=== PATIENT | male | born 1965 | race American Indian/Alaskan Native ===

== ENCOUNTER 2020-08-29 23:47 | Emergency (ER) | payer OTHER ==
[2020-08-30 00:56] LABS: Basophils % (Auto) 0.5 % (0.0-1.8); Eosinophils # (Auto) 0.1 K/mm3 (0.0-0.4); Eosinophils % (Auto) 2.4 % (0.0-4.3); Hematocrit 43.9 % (35.5-45.6); Hemoglobin 14.4 gm/dl (11.8-15.2); Lymphocytes # (Auto) 2.2 K/mm3 (1.2-5.4); Lymphocytes % (Auto) 37.1 % (13.4-35.0); Mean Corpuscular HGB Conc 33 % (32-34); Mean Corpuscular Volume 87 fl (84-94); Monocytes # (Auto) 0.4 K/mm3 (0.0-0.8); Monocytes % (Auto) 6.5 % (0.0-7.3); Platelet Count 179 K/mm3 (140-440); Red Blood Count 5.03 M/mm3 (3.65-5.03); Red Cell Distribution Width 13.5 % (13.2-15.2)
[2020-08-30 01:08] LABS: BUN/Creatinine Ratio 13; Blood Urea Nitrogen 12 mg/dL (9-20); Calcium 9.4 mg/dL (8.4-10.2); Hemolysis Index 5
[2020-08-30 02:08] LABS: Bilirubin,Urine NEG (Negative); Blood,Urine NEG (Negative); Color,Urine Straw (Yellow); Protein,Urine <15 mg/dL mg/dL (Negative); Urobilinogen,Urine < 2.0 mg/dL (<2.0)
[2020-08-30 02:10] LABS: Amphetamine Screen,Urine PRESUMPTIVE NEGATIVE; Benzodiazepines Screen,Urine PRESUMPTIVE NEGATIVE; Cannabinoid Screen,Urine PRESUMPTIVE NEGATIVE; Cocaine Screen,Urine PRESUMPTIVE NEGATIVE; Methadone Screen,Urine PRESUMPTIVE NEGATIVE; Opiate Screen,Urine PRESUMPTIVE NEGATIVE
[2020-08-30] MEDS ORDERED: INSULIN REGULAR, HUMAN 100 UNITS/1 ML IV ONE (03:56)
[2020-08-30] MEDS ORDERED: SODIUM CHLORIDE 0.9% 1000 ML 1,000 ML IV ONE (03:56)
--- NOTE | 2020-08-30 04:04 | Emergency Department Report ---
ED Psych HPI - General Chief Complaint: Psych Stated Complaint: DEPRESSION/MH EVAL Time Seen by Provider: 08/30/20 03:55 Source: patient Mode of arrival: Ambulatory - History of Present Illness Initial Comments: Patient is a 54-year-old male that presents emergency room with complaints of suicidal and homicidal ideations. Patient states he is having depression. Patient states he is under a lot of stress. Patient states that his plan will be to take pills and not wake up. Patient states he is having a lot of arguments with his neighbors. Patient states he been having these thoughts for about 2 months and they are getting worse and more severe. Patient denies recent travel. Patient denies recent international travel. Patient denies exposure to the novel coronavirus. Patient denies sick contacts. Patient denies fever and chills. Patient denies cough. Patient denies diarrhea. Patient denies coming in contact with anybody with symptoms of the novel coronavirus. MD Complaint: suicidal ideation, feels depressed -: Sudden Associated Psychiatric Symptoms: depression, suicidal ideation History of same: No Quality: constant Improves With: none Worsens With: none Associated Symptoms: denies other symptoms If Self Harm: admits thoughts of, has plan - Related Data Home Medications Medication Instructions Recorded Confirmed Last Taken Glimepiride 4 mg PO BID 11/12/14 08/31/20 11/12/14 Montelukast Sodium [Singulair] 10 mg PO DAILY 11/12/14 08/31/20 11/12/14 Simvastatin (NF) [Zocor TAB] 40 mg PO QHS 11/12/14 08/31/20 11/12/14 metFORMIN [Glucophage] 500 mg PO BID 08/31/20 08/31/20 08/31/20 10:00 Previous Rx's Medication Instructions Recorded Last Taken Type Tamsulosin [Flomax] 0.4 mg PO QDAY #5 cap 11/12/14 Unknown Rx Melatonin [Melatonin 5MG TAB] 5 mg PO QHS PRN #30 tablet 09/05/20 Unknown Rx Sertraline [Zoloft] 50 mg PO QDAY #30 tablet 09/05/20 Unknown Rx traZODone [Desyrel] 75 mg PO QHS #30 tablet 09/05/20 Unknown Rx Allergies Allergy/AdvReac Type Severity Reaction Status Date / Time No Known Allergies Allergy Unverified 11/12/14 16:38 ED Review of Systems ROS: Stated complaint: DEPRESSION/MH EVAL Other details as noted in HPI Constitutional: denies: chills, fever Eyes: denies: eye pain, eye discharge, vision change ENT: denies: ear pain, throat pain Respiratory: denies: cough, shortness of breath, wheezing Cardiovascular: denies: chest pain, palpitations Endocrine: no symptoms reported Gastrointestinal: denies: abdominal pain, nausea, diarrhea Genitourinary: denies: urgency, dysuria Musculoskeletal: denies: back pain, joint swelling, arthralgia Skin: denies: rash, lesions Neurological: denies: headache, weakness, paresthesias Psychiatric: as per HPI, depression, homicidal thoughts, suicidal thoughts. denies: anxiety Hematological/Lymphatic: denies: easy bleeding, easy bruising ED Past Medical Hx - Past Medical History Previous Medical History?: Yes Hx Diabetes: Yes Hx Kidney Stones: Yes Hx Psychiatric Treatment: Yes (SI/HI) Hx Asthma: Yes Additional medical history: Back pain and kidney stones - Surgical History Past Surgical History?: Yes Additional Surgical History: lithotripsy for kidneystones - Social History Smoking Status: Never Smoker Substance Use Type: Alcohol - Medications Home Medications: Home Medications Medication Instructions Recorded Confirmed Last Taken Type Glimepiride 4 mg PO BID 11/12/14 08/31/20 11/12/14 History Montelukast Sodium [Singulair] 10 mg PO DAILY 11/12/14 08/31/20 11/12/14 History Simvastatin (NF) [Zocor TAB] 40 mg PO QHS 11/12/14 08/31/20 11/12/14 History Tamsulosin [Flomax] 0.4 mg PO QDAY #5 cap 11/12/14 08/31/20 Unknown Rx metFORMIN [Glucophage] 500 mg PO BID 08/31/20 08/31/20 08/31/20 10:00 History Melatonin [Melatonin 5MG TAB] 5 mg PO QHS PRN #30 tablet 09/05/20 Unknown Rx Sertraline [Zoloft] 50 mg PO QDAY #30 tablet 09/05/20 Unknown Rx traZODone [Desyrel] 75 mg PO QHS #30 tablet 09/05/20 Unknown Rx ED Physical Exam - General Limitations: No Limitations General appearance: alert, in no apparent distress - Head Head exam: Present: atraumatic, normocephalic - Eye Eye exam: Present: normal appearance - ENT ENT exam: Present: mucous membranes moist - Neck Neck exam: Present: normal inspection - Respiratory Respiratory exam: Present: normal lung sounds bilaterally. Absent: respiratory distress - Cardiovascular Cardiovascular Exam: Present: regular rate, normal rhythm. Absent: systolic murmur, diastolic murmur, rubs, gallop - GI/Abdominal GI/Abdominal exam: Present: soft, normal bowel sounds - Rectal Rectal exam: Present: deferred - Extremities Exam Extremities exam: Present: normal inspection - Back Exam Back exam: Present: normal inspection - Neurological Exam Neurological exam: Present: alert, oriented X3 - Psychiatric Psychiatric exam: Present: depressed, homicidal ideation, suicidal ideation - Skin Skin exam: Present: warm, dry, intact, normal color. Absent: rash ED Course Vital Signs 08/30/20 08/30/20 08/30/20 00:10 05:20 07:51 Temperature 98.2 F 97.8 F 98.0 F Pulse Rate 67 56 L 65 Respiratory 18 18 20 Rate Blood Pressure 140/79 Blood Pressure 143/74 132/76 [Left] O2 Sat by Pulse 96 99 96 Oximetry 08/30/20 08/31/20 08/31/20 20:28 03:52 08:00 Temperature 98.4 F 98.3 F Pulse Rate 56 L 71 Respiratory 18 18 18 Rate Blood Pressure Blood Pressure 119/76 116/74 [Left] O2 Sat by Pulse 99 98 98 Oximetry - Reevaluation(s) Reevaluation #1: Patient given fluids, insulin and we rechecked the patient's sugar and it was 156. Patient is medically cleared. Patient remained in the ER as an ER hold until the patient is cleared by psychiatry. Patient final disposition will come from our psychiatry and mental health team. 08/30/20 05:39 ED Medical Decision Making - Lab Data Result diagrams: 08/30/20 00:23 08/30/20 00:23 - Medical Decision Making Patient is a 54-year-old male who presents to the emergency room with complaints of suicidal ideation, homicidal ideations. Patient had labs done. Patient's labs were essentially unremarkable except for hyperglycemia. Patient was given fluids and IV insulin. Patient's blood sugar responded well. Patient's original blood sugar was 469 and the patient's follow-up blood sugar after treatment was 156. Patient was medically cleared. Patient will remain in the ER as an ER hold until patient is cleared psychiatrically by ER psychiatry and mental health team. Patient's disposition will come from our psychiatry team. - Differential Diagnosis Suicidal ideation, homicidal ideation, stress, depression, hyperglycemia Critical care attestation.: If time is entered above; I have spent that time in minutes in the direct care of this critically ill patient, excluding procedure time. ED Disposition Clinical Impression: Suicidal ideations, Homicidal thoughts Hyperglycemia due to type 2 diabetes mellitus Qualifiers: Diabetes mellitus supervisor intermediates insulin use: without jail use Qualified Code(s): E11.65 - Type 2 diabetes mellitus with hyperglycemia Disposition: DC/TX-65 PSY HOSP/PSY UNIT Is pt being admited?: No Does the pt Need Aspirin: No Condition: Stable Instructions: Type 2 Diabetes Mellitus, Self Care, Adult, [id number], Diabetes Mellitus Type 2 in Adults (ED) Referrals: PRIMARY CARE, [Primary Care Provider] - 3-5 Days Time of Disposition: 05:41
--- NOTE | 2020-08-30 09:07 | Consultation ---
History of Present Illness - Reason for Consult Consult date: 08/30/20 Reason for consult: MHE Requesting physician: MARCO VALLADARES III - History of Present Psychiatric Illness Per ED Provider: Patient is a 54-year-old male that presents emergency room with complaints of suicidal and homicidal ideations. Patient states he is having depression. Patient states he is under a lot of stress. Patient states that his plan will be to take pills and not wake up. Patient states he is having a lot of arguments with his neighbors. Patient states he been having these thoughts for about 2 months and they are getting worse and more severe. PSYCH HPI Patient is a 54-year-old , self-employed -German male with no past psychiatric history but has past medical history of diabetes who currently resides with in his own place presented to the ED with chief complaint of suicidal ideation. During this intake patient appears to be very tearful, patient reported his been feeling like he meds for the past couple of days, and having sensation of the water falling down on him. Patient reported he has been going through a lot of emotional distress and disturbances through his neighbors. He reported for the past 2 months, he has been constantly getting police called upon him by his neighbors for code violations issues which has resulted into multiple visit by the community monitoring team and also multiple citations. Patient reported this actions has led to him feeling getting harrasesed and specifically targeted by neighbors constantly for doing things that shouldn't have been an issue to begin with. Patient reported his is on long-term disability due to a history of MS, and is also having some marital issues and all of this combined just made him want to give up go to bed sleep and never ever wake up anymore PAST PSYCHIATRIC HISTORY Diagnoses: none reported Suicide attempts or Self-harm behavior: none reported Prior psychiatric hospitalizations: none reported Substance Abuse history: none reported Previous psychiatric medications tried: none reported Outpatient treatment: none reported PAST MEDICAL HISTORY: Diabetes Family Psychiatric History: None reported or documented SOCIAL HISTORY Marital Status: Living Arrangements: With Employment Status: Self employment Access to guns/weapons: None reported Education: [employer] [facility] [place] History of Abuse: Emotional Legal History: Yes REVIEW OF SYSTEMS Constitutional: Negative for weight loss ENT: Negative for stridor Respiratory: Negative for cough or hemoptysis All other systems reviewed and are negative MENTAL STATUS EXAMINATION General Appearance and Behavior: Age appropriate, good hygiene, wearing appropriate clothes,, good eye contact Cooperation: Participating/engaged, but Guarded Psychomotor Behavior: Psychomotor normal Mood: depressed Affect and affective range: irritable, labile Thought Process: illogical Thought Content: hopelessness, helplessness Speech: Normal rate, volume and rythm Intellectual Functioning: Average Suicidal Ideation: SI Homicidal Ideation: Denies HI Impulse Control: Impaired Insight and Judgment: Limited insight and judgment Memory: Normal Attention: Normal Orientation: Alert, oriented Assessment and Plan - Psychiatric problem (1) MDD (major depressive disorder) Current Visit: Yes Status: Acute F32.9 Treatment Plan MEDICATIONS: Risks, benefits and alternatives of medications discussed with the patient, qu estions answered and consent obtained from patient. PSYCHOTHERAPY: Supportive psychotherapy provided MEDICAL: Per primary team DELIRIUM PRECAUTIONS: Please re-orient patient frequently, keep lights on during the day, and minimize benzodiazepines and opiates as these medications could worsen patient's confusion. EMERGENCY MANAGEMENT PROGRAM SPECIALIST: DISPOSITION: Do Recommend acute inpatient psychiatric hospitalization at this time. Case discussed with Dr. Montero who agrees with current disposition LEGAL STATUS: 1013 FOLLOW-UP: Will follow Thank you for the consult. Please contact with any questions and/or concerns. Medications and Allergies Allergies Allergy/AdvReac Type Severity Reaction Status Date / Time No Known Allergies Allergy Unverified 11/12/14 16:38 Home Medications Medication Instructions Recorded Confirmed Last Taken Type Glimepiride 4 mg PO BID 11/12/14 11/12/14 11/12/14 History Montelukast Sodium [Singulair] 10 mg PO DAILY 11/12/14 11/12/14 11/12/14 History Simvastatin (NF) [Zocor TAB] 40 mg PO QHS 11/12/14 11/12/14 11/12/14 History Tamsulosin [Flomax] 0.4 mg PO QDAY #5 cap 11/12/14 Unknown Rx Mental Status Exam - Vital signs Last Vital Signs Temp 98.0 F 08/30/20 07:51 Pulse 65 08/30/20 07:51 Resp 20 08/30/20 07:51 BP 132/76 08/30/20 07:51 Pulse Ox 96 08/30/20 07:51 Results Result Diagrams: 08/30/20 00:23 08/30/20 00:23 Abnormal lab results 05/06/21 05/06/21 05/06/21 Range/Units 00:23 00:23 00:23 Lymph % (Auto) (13.4-35.0) % Glucose 469 H (75-100) mg/dL POC Glucose (70-105) mg/dL Salicylates < 0.3 L (2.8-20.0) mg/dL Acetaminophen 5.0 L (10.0-30.0) ug/mL 08/30/20 08/30/20 Range/Units 00:23 05:39 Lymph % (Auto) 37.1 H (13.4-35.0) % Glucose (75-100) mg/dL POC Glucose 156 H (70-105) mg/dL Salicylates (2.8-20.0) mg/dL Acetaminophen (10.0-30.0) ug/mL All other labs normal.
[2020-08-30] MEDS: INSULIN REGULAR, HUMAN 100 UNITS/1 ML SUB-Q SCH ×2 (16:25→22:37)
[2020-08-30] MEDS: metFORMIN 500 MG TAB PO SCH (16:31)
[2020-08-31] MEDS: metFORMIN 500 MG TAB PO SCH (08:06)
[2020-08-31] MEDS: INSULIN REGULAR, HUMAN 100 UNITS/1 ML SUB-Q SCH ×3 (08:06→17:00)
[2020-08-31 09:35] VITALS: BP 116/74
--- NOTE | 2020-08-31 10:43 | Emergency Department Report ---
Blank Doc - Documentation Documentation: This patient came into the emergency department yesterday with both suicidal and homicidal ideations. For this reason he was made a 1013 and an ED hold. He was seen by the psychiatric midlevel provider yesterday who agrees with the plan for inpatient stabilization. No new labs today other than Accu-Cheks. We are waiting for blood sugar to be close to or below 200 and he will be accepted to [facility]. The patient has already been placed on there oral and subcutaneous diabetes medications. No events overnight signed out to the emergency department psychiatric nurse. The vital signs listed below are reassuring. We will continue to monitor during her ED course. Vital Signs - 24 hr 08/30/20 08/31/20 08/31/20 20:28 03:52 08:00 Temperature 98.4 F 98.3 F Pulse Rate 56 L 71 Respiratory 18 18 18 Rate Blood Pressure 119/76 116/74 [Left] O2 Sat by Pulse 99 98 98 Oximetry
== END 2020-08-31 17:00 ==
LOC: ED 23:47
DX: E11.65 Type 2 diabetes mellitus with hyperglycemia (principal); Z20.822 Contact with and (suspected) exposure to COVID-19; R45.851 Suicidal ideations; R45.850 Homicidal ideations; J45.909 Unspecified asthma, uncomplicated; Z98.890 Other specified postprocedural states; Z79.899 Other long term (current) drug therapy
CPT/HCPCS: 36415; 80048; 80307; 81001; 82962; 85025; 96361; 96372; 96374; 99284; J7030; U0003; 80320; G0480; J1815

== ENCOUNTER 2020-08-31 02:12 | Inpatient (IN) | payer OTHER ==
[2020-08-31] MEDS ORDERED: MELATONIN 5 MG TAB PO PRN (07:07)
[2020-08-31] MEDS: traZODone 50 MG TAB PO SCH (21:12)
[2020-08-31] MEDS: INSULIN REGULAR, HUMAN 100 UNITS/1 ML SUB-Q SCH (22:37)
[2020-08-31 22:51] LABS: Bilirubin,Urine NEG (Negative); Blood,Urine NEG (Negative); Color,Urine Straw (Yellow); Protein,Urine <15 mg/dL mg/dL (Negative); Urobilinogen,Urine < 2.0 mg/dL (<2.0); WBC,Urine < 1.0 /HPF (0.0-6.0)
--- NOTE | 2020-09-01 07:59 | History and Physical Report ---
GP History & Physical - History of Present Illness Date of admission: 08/31/20 Date of Examination: 09/01/20 Reason for Admission: Danger to self, Severe anxiety/depression History of Present Illness: Per admission note: Suicide ideation and homicidal Ideation. Pt states he is having depression and has been under a lot of stress. Plan to take pills and never wake up. States he church s been having a lot of argument with the neighbors. Lucio López is a 54y/o male patient who states he was admitted into the hospital for severe depression and stress. He is seen pacing around the unit. The patient says his neighbors keep calling code enforcement on him and he's having marital issues. He says he "wished he would go to sleep and never wake up." He denies hallucinations, but says "I like to talk to myself to keep myself calm." He denies any illicit drug use, alcohol or nicotine. He also denies any psych history in about 15 years. He says he's not any any psych medications. PAST PSYCHIATRIC HISTORY Diagnoses: Denies Suicide attempts or Self-harm behavior: None reported Prior psychiatric hospitalizations: Denies Substance Abuse history: Denies Previous psychiatric medications tried: Denies Outpatient treatment: None reported PAST MEDICAL HISTORY: DM, asthma Family Psychiatric History: None reported or documented SOCIAL HISTORY Marital Status: Living Arrangements: with spouse Employment Status: self employed Access to guns/weapons: None reported Education: high school History of Abuse: None reported Legal History: None reported REVIEW OF SYSTEMS Constitutional: Negative for weight loss ENT: Negative for stridor Respiratory: Negative for cough or hemoptysis All other systems reviewed and are negative MENTAL STATUS EXAMINATION General Appearance and Behavior: Age appropriate, good hygiene, wearing appropriate clothes, good eye contact, cooperative polite with questioning. Cooperation: Participating/engaged Psychomotor Behavior: unremarkable and within normal limits Mood: Depressed Affect and affective range: congruent with mood Thought Process: Fluent/Logical, Thought Content: Within reality, Speech: Normal volume, Regular rate and rhythm, Intellectual Functioning: Average Suicidal Ideation: Yes Homicidal Ideation: Denies HI Impulse Control: Unimpaired Insight and Judgment: Normal insight and judgment, Memory: Normal, Attention: Normal, Orientation: Alert, oriented, Assessment (1) Major Depressive Disorder Current Visit: Yes Status: Acute Treatment Plan Patient admitted for inpatient psychiatric evaluation, medication adjustment and close monitoring The patient's behavior, mood, sleep and appetite will be closely monitored. Patient enrolled in individual and group therapeutic sessions and encouraged to attend. Patient provided with a safe and structured environment. Patient's physical health needs will be addressed by the Hospitalist. Hospitalist Consulted Labs including CBC, CMP, Lipid profile and Hemoglobin A1C levels ordered for baseline reference Social Assessment will be completed and the Application Technician will work with patient and family to ensure a suitable and safe disposition Medication adjustment will be made as clinically indicated Home meds started, Zoloft added yesterday Usual Wellness Jainism/Preservation: - Start Trazodone 50 mg po QHS & 50 mg po QHS PRN between 10 PM & 2 AM for insomnia - Start Melatonin 5 mg po QHS to promote circadian rhythm - Start Dike-3 for brain health, reduce impulsivity, and as adjunctive treatment for mood disorder, continue upon discharge given overall benefits. - Start B1 prophylaxis with 200 mg po for 5 days The patient agreed on the treatment plan, understood the risk, benefit, alternative treatment, potential consequence of no treatment, and gave informed consent. Initial Certification Inpatient psych services: I certify that the inpatient psychiatric services are required for treatment that could reasonably be expected to improve the patient's condition. Estimated days: 7 Post hospital care: primary care provider, psychiatric provider Case staffed with Dr. Montero Legal Status: Voluntary Reaction to Hospitalization: Accepting Medications and Allergies Allergies Allergy/AdvReac Type Severity Reaction Status Date / Time No Known Allergies Allergy Unverified 11/12/14 16:38 Home Medications Medication Instructions Recorded Confirmed Last Taken Type Glimepiride 4 mg PO BID 11/12/14 08/31/20 11/12/14 History Montelukast Sodium [Singulair] 10 mg PO DAILY 11/12/14 08/31/20 11/12/14 History Simvastatin (NF) [Zocor TAB] 40 mg PO QHS 11/12/14 08/31/20 11/12/14 History Tamsulosin [Flomax] 0.4 mg PO QDAY #5 cap 11/12/14 08/31/20 Unknown Rx metFORMIN [Glucophage] 500 mg PO BID 08/31/20 08/31/20 08/31/20 10:00 History Active Meds: Active Medications Insulin Human Regular (Insulin Regular, Human 100 Units/1 Ml) 0 units SUB-Q [facility]; Protocol Last Admin: 08/31/20 22:37 Dose: 6 units Documented by: Melatonin (Melatonin 5 Mg Tab) 5 mg PO QHS PRN PRN Reason: Sleep Sertraline HCl (Sertraline 50 Mg Tab) 50 mg PO QDAY GIANLUCA Trazodone HCl (Trazodone 50 Mg Tab) 50 mg PO QHS GIANLUCA Last Admin: 08/31/20 21:12 Dose: Not Given Documented by: Results - Results Labs/Vitals: Laboratory Last Values POC Glucose 347 mg/dL (70-105) H 08/31/20 21:49 Urine Color Straw (Yellow) 08/31/20 22:00 Urine Turbidity Clear (Clear) 08/31/20 22:00 Urine pH 6.0 (5.0-7.0) 08/31/20 22:00 Ur Specific Tully 1.024 (1.003-1.030) 08/31/20 22:00 Urine Protein <15 mg/dl mg/dL (Negative) 08/31/20 22:00 Urine Glucose (UA) >=500 mg/dL (Negative) 08/31/20 22:00 Urine Ketones Neg mg/dL (Negative) 08/31/20 22:00 Urine Blood Neg (Negative) 08/31/20 22:00 Urine Nitrite Neg (Negative) 08/31/20 22:00 Urine Bilirubin Neg (Negative) 08/31/20 22:00 Urine Urobilinogen < 2.0 mg/dL (<2.0) 08/31/20 22:00 Ur Leukocyte Esterase Neg (Negative) 08/31/20 22:00 Urine WBC (Auto) < 1.0 /HPF (0.0-6.0) 08/31/20 22:00 Urine RBC (Auto) 1.0 /HPF (0.0-6.0) 08/31/20 22:00 Last Vital Signs Temp 97.8 F 08/31/20 22:00 Pulse 61 08/31/20 22:00 Resp 18 08/31/20 22:00 BP 112/67 08/31/20 22:00 Pulse Ox 99 08/31/20 22:00 Physical Examination - Constitutional Vitals: Vital Signs Temp Pulse Resp BP Pulse Ox 97.8 F 61 18 112/67 99 08/31/20 22:00 08/31/20 22:00 08/31/20 22:00 08/31/20 22:00 08/31/20 22:00 Temperature -Last 24 Hours Temperature 97.8 F Temperature 97.8 F Mental Status Exam - Vital signs Last Vital Signs Temp 97.8 F 08/31/20 22:00 Pulse 61 08/31/20 22:00 Resp 18 08/31/20 22:00 BP 112/67 08/31/20 22:00 Pulse Ox 99 08/31/20 22:00 Physician Certification - Certification Statement Physician Certification Statement: This is an acknowledgement statement that LUCIO LÓPEZ is a 54 year old M who requires inpatient psychiatric admission for treatment which could reasonably be expected to improve the patient's condition for Estimated period of time patient will need to remain in the hospital: [ ] Plan for post-hospital care: [ ]
[2020-09-01] MEDS: INSULIN REGULAR, HUMAN 100 UNITS/1 ML SUB-Q SCH ×4 (08:00→21:30)
[2020-09-01] MEDS: SERTRALINE 50 MG TAB PO SCH ×2 (09:17→10:00)
[2020-09-01] MEDS: GLIMEPIRIDE 4 MG TAB PO SCH ×2 (09:21→16:26)
[2020-09-01] MEDS: metFORMIN 500 MG TAB PO SCH ×2 (09:21→16:26)
[2020-09-01] MEDS: TAMSULOSIN 0.4 MG CAP PO SCH (09:21)
[2020-09-01] MEDS: MONTELUKAST 10 MG TAB PO SCH (09:22)
[2020-09-01] MEDS ORDERED: NON-FORMULARY EACH (Glimepiride 4 MG) PO SCH (10:00)
[2020-09-01] MEDS: traZODone 50 MG TAB PO SCH (21:12)
[2020-09-01] MEDS: PRAVASTATIN 80 MG TAB PO SCH (21:12)
[2020-09-01] MEDS ORDERED: NON-FORMULARY EACH (Simvastatin (Nf) 40 MG Tablet) PO SCH (22:00)
[2020-09-02] MEDS: metFORMIN 500 MG TAB PO SCH ×2 (07:46→16:55)
[2020-09-02] MEDS: GLIMEPIRIDE 4 MG TAB PO SCH ×2 (07:46→16:55)
[2020-09-02] MEDS: INSULIN REGULAR, HUMAN 100 UNITS/1 ML SUB-Q SCH ×4 (07:46→21:19)
[2020-09-02] MEDS: TAMSULOSIN 0.4 MG CAP PO SCH (09:36)
[2020-09-02] MEDS: MONTELUKAST 10 MG TAB PO SCH (09:36)
[2020-09-02] MEDS: SERTRALINE 50 MG TAB PO SCH (09:36)
--- NOTE | 2020-09-02 11:38 | Progress Note ---
Subjective Date of service: 09/02/20 Principal diagnosis: MDD Subjective Comment: The patient was seen today, he verbalizes feeling better, but says he still "feels slightly suicidal." He says "I'm getting better though." He denies hallucinations of any kind. H says he slept well and his appetite is good. REVIEW OF SYSTEMS Constitutional: Negative for weight loss ENT: Negative for stridor Respiratory: Negative for cough or hemoptysis All other systems reviewed and are negative MENTAL STATUS EXAMINATION General Appearance and Behavior: Age appropriate, good hygiene, wearing appropriate clothes, good eye contact, cooperative polite with questioning. Cooperation: Participating/engaged Psychomotor Behavior: unremarkable and within normal limits Mood: Depressed Affect and affective range: congruent with mood Thought Process: Fluent/Logical, Thought Content: Within reality, Speech: Normal volume, Regular rate and rhythm, Intellectual Functioning: Average Suicidal Ideation: Yes Homicidal Ideation: Denies HI Impulse Control: Unimpaired Insight and Judgment: Normal insight and judgment, Memory: Normal, Attention: Normal, Orientation: Alert, oriented, Assessment (1) Major Depressive Disorder Current Visit: Yes Status: Acute Treatment Plan Patient admitted for inpatient psychiatric evaluation, medication adjustment a nd close monitoring The patient's behavior, mood, sleep and appetite will be closely monitored. Patient enrolled in individual and group therapeutic sessions and encouraged to attend. Patient provided with a safe and structured environment. Patient's physical health needs will be addressed by the Hospitalist. Hospitalist Consulted Labs including CBC, CMP, Lipid profile and Hemoglobin A1C levels ordered for baseline reference Social Assessment will be completed and the Project Management Professor will work with patient and family to ensure a suitable and safe disposition Medication adjustment will be made as clinically indicated No changes made today Usual Wellness Orthodoxy/Preservation: - Start Trazodone 50 mg po QHS & 50 mg po QHS PRN between 10 PM & 2 AM for in somnia - Start Melatonin 5 mg po QHS to promote circadian rhythm - Start [place]-3 for brain health, reduce impulsivity, and as adjunctive treatment for mood disorder, continue upon discharge given overall benefits. - Start B1 prophylaxis with 200 mg po for 5 days The patient agreed on the treatment plan, understood the risk, benefit, alternative treatment, potential consequence of no treatment, and gave informed consent. Initial Certification Inpatient psych services: I certify that the inpatient psychiatric services are required for treatment that could reasonably be expected to improve the patient's condition. Estimated days: 3 Post hospital care: primary care provider, psychiatric provider Case staffed with Dr. Montero Medications and Allergies Allergies Allergy/AdvReac Type Severity Reaction Status Date / Time No Known Allergies Allergy Unverified 11/12/14 16:38 Home Medications Medication Instructions Recorded Confirmed Last Taken Type Glimepiride 4 mg PO BID 11/12/14 08/31/20 11/12/14 History Montelukast Sodium [Singulair] 10 mg PO DAILY 11/12/14 08/31/20 11/12/14 History Simvastatin (NF) [Zocor TAB] 40 mg PO QHS 11/12/14 08/31/20 11/12/14 History Tamsulosin [Flomax] 0.4 mg PO QDAY #5 cap 11/12/14 08/31/20 Unknown Rx metFORMIN [Glucophage] 500 mg PO BID 08/31/20 08/31/20 08/31/20 10:00 History Active Meds: Active Medications Glimepiride (Glimepiride 4 Mg Tab) 4 mg PO BIDDIAB [facility] Last Admin: 09/02/20 07:46 Dose: 4 mg Documented by: Insulin Human Regular (Insulin Regular, Human 100 Units/1 Ml) 0 units SUB-Q [facility]; Protocol Last Admin: 09/02/20 07:46 Dose: 3 units Documented by: Melatonin (Melatonin 5 Mg Tab) 5 mg PO QHS PRN PRN Reason: Sleep Metformin HCl (Metformin 500 Mg Tab) 500 mg PO BIDDIAB [facility] Last Admin: 09/02/20 07:46 Dose: 500 mg Documented by: Montelukast Sodium (Montelukast 10 Mg Tab) 10 mg PO DAILY [facility] Last Admin: 09/02/20 09:36 Dose: 10 mg Documented by: Pravastatin Sodium (Pravastatin 80 Mg Tab) 80 mg PO QHS [facility] Last Admin: 09/01/20 21:12 Dose: 80 mg Documented by: Sertraline HCl (Sertraline 50 Mg Tab) 50 mg PO QDAY [facility] Last Admin: 09/02/20 09:36 Dose: 50 mg Documented by: Tamsulosin HCl (Tamsulosin 0.4 Mg Cap) 0.4 mg PO QDAY [facility] Last Admin: 09/02/20 09:36 Dose: 0.4 mg Documented by: Trazodone HCl (Trazodone 50 Mg Tab) 50 mg PO QHS [facility] Last Admin: 09/01/20 21:12 Dose: 50 mg Documented by: Results - Results Labs/Vitals: Laboratory Last Values POC Glucose 201 mg/dL (70-105) H 09/02/20 06:15 Urine Color Straw (Yellow) 08/31/20 22:00 Urine Turbidity Clear (Clear) 08/31/20 22:00 Urine pH 6.0 (5.0-7.0) 08/31/20 22:00 Ur Specific [place] 1.024 (1.003-1.030) 08/31/20 22:00 Urine Protein <15 mg/dl mg/dL (Negative) 08/31/20 22:00 Urine Glucose (UA) >=500 mg/dL (Negative) 08/31/20 22:00 Urine Ketones Neg mg/dL (Negative) 08/31/20 22:00 Urine Blood Neg (Negative) 08/31/20 22:00 Urine Nitrite Neg (Negative) 08/31/20 22:00 Urine Bilirubin Neg (Negative) 08/31/20 22:00 Urine Urobilinogen < 2.0 mg/dL (<2.0) 08/31/20 22:00 Ur Leukocyte Esterase Neg (Negative) 08/31/20 22:00 Urine WBC (Auto) < 1.0 /HPF (0.0-6.0) 08/31/20 22:00 Urine RBC (Auto) 1.0 /HPF (0.0-6.0) 08/31/20 22:00 Last Vital Signs Temp 98.1 F 09/02/20 08:05 Pulse 83 09/02/20 08:05 Resp 16 09/02/20 08:05 BP 100/56 09/02/20 08:05 Pulse Ox 97 09/02/20 08:05
[2020-09-02] MEDS: traZODone 50 MG TAB PO SCH (21:06)
[2020-09-02] MEDS: PRAVASTATIN 80 MG TAB PO SCH (21:07)
[2020-09-03] MEDS: INSULIN REGULAR, HUMAN 100 UNITS/1 ML SUB-Q SCH ×4 (08:01→21:51)
[2020-09-03] MEDS: metFORMIN 500 MG TAB PO SCH ×2 (08:05→16:51)
[2020-09-03] MEDS: GLIMEPIRIDE 4 MG TAB PO SCH ×2 (08:05→16:52)
[2020-09-03] MEDS: TAMSULOSIN 0.4 MG CAP PO SCH (09:20)
[2020-09-03] MEDS: SERTRALINE 50 MG TAB PO SCH (09:20)
[2020-09-03] MEDS: MONTELUKAST 10 MG TAB PO SCH (09:20)
--- NOTE | 2020-09-03 10:47 | Progress Note ---
Subjective Date of service: 09/03/20 Principal diagnosis: MDD Subjective Comment: The patient was seen today, he says he feels fine. The patient says he didn't sleep last night because of racing thoughts. he says he no longer feels suicidal, and asked if a note could be sent to his neighbors telling them what the stress is doing to him. The patient says if I get out and it's still going on that's what will make me suicidal. REVIEW OF SYSTEMS Constitutional: Negative for weight loss ENT: Negative for stridor Respiratory: Negative for cough or hemoptysis All other systems reviewed and are negative MENTAL STATUS EXAMINATION General Appearance and Behavior: Age appropriate, good hygiene, wearing appropriate clothes, good eye contact, cooperative polite with questioning. Cooperation: Participating/engaged Psychomotor Behavior: unremarkable and within normal limits Mood: Depressed Affect and affective range: congruent with mood Thought Process: Fluent/Logical, Thought Content: Within reality, Speech: Normal volume, Regular rate and rhythm, Intellectual Functioning: Average Suicidal Ideation: Yes Homicidal Ideation: Denies HI Impulse Control: Unimpaired Insight and Judgment: Normal insight and judgment, Memory: Normal, Attention: Normal, Orientation: Alert, oriented, Assessment (1) Major Depressive Disorder Current Visit: Yes Status: Acute Treatment Plan Patient admitted for inpatient psychiatric evaluation, medication adjustment and close monitoring The patient's behavior, mood, sleep and appetite will be closely monitored. Patient enrolled in individual and group therapeutic sessions and encouraged to attend. Patient provided with a safe and structured environment. Patient's physical health needs will be addressed by the Hospitalist. Hospitalist Consulted Labs including CBC, CMP, Lipid profile and Hemoglobin A1C levels ordered for baseline reference Social Assessment will be completed and the Assistant Professor Of Biology will work with patient and family to ensure a suitable and safe disposition Medication adjustment will be made as clinically indicated Increased Trazodone 75mg po daily Usual Wellness Mu-Ism/Preservation: - Start Trazodone 50 mg po QHS & 50 mg po QHS PRN between 10 PM & 2 AM for insomnia - Start Melatonin 5 mg po QHS to promote circadian rhythm - Start [place]-3 for brain health, reduce impulsivity, and as adjunctive treatment for mood disorder, continue upon discharge given overall benefits. - Start B1 prophylaxis with 200 mg po for 5 days The patient agreed on the treatment plan, understood the risk, benefit, alternative treatment, potential consequence of no treatment, and gave informed consent. Estimated days: 3 Post hospital care: primary care provider, psychiatric provider Case staffed with Dr. Montero Medications and Allergies Allergies Allergy/AdvReac Type Severity Reaction Status Date / Time No Known Allergies Allergy Unverified 11/12/14 16:38 Home Medications Medication Instructions Recorded Confirmed Last Taken Type Glimepiride 4 mg PO BID 11/12/14 08/31/20 11/12/14 History Montelukast Sodium [Singulair] 10 mg PO DAILY 11/12/14 08/31/20 11/12/14 History Simvastatin (NF) [Zocor TAB] 40 mg PO QHS 11/12/14 08/31/20 11/12/14 History Tamsulosin [Flomax] 0.4 mg PO QDAY #5 cap 11/12/14 08/31/20 Unknown Rx metFORMIN [Glucophage] 500 mg PO BID 08/31/20 08/31/20 08/31/20 10:00 History Active Meds: Active Medications Glimepiride (Glimepiride 4 Mg Tab) 4 mg PO BIDDIAB [facility] Last Admin: 09/03/20 08:05 Dose: 4 mg Documented by: Insulin Human Regular (Insulin Regular, Human 100 Units/1 Ml) 0 units SUB-Q [facility]; Protocol Last Admin: 09/03/20 08:01 Dose: 2 units Documented by: Melatonin (Melatonin 5 Mg Tab) 5 mg PO QHS PRN PRN Reason: Sleep Metformin HCl (Metformin 500 Mg Tab) 500 mg PO BIDDIAB [facility] Last Admin: 09/03/20 08:05 Dose: 500 mg Documented by: Montelukast Sodium (Montelukast 10 Mg Tab) 10 mg PO DAILY [facility] Last Admin: 09/03/20 09:20 Dose: 10 mg Documented by: Pravastatin Sodium (Pravastatin 80 Mg Tab) 80 mg PO QHS [facility] Last Admin: 09/02/20 21:07 Dose: 80 mg Documented by: Sertraline HCl (Sertraline 50 Mg Tab) 50 mg PO QDAY [facility] Last Admin: 09/03/20 09:20 Dose: 50 mg Documented by: Tamsulosin HCl (Tamsulosin 0.4 Mg Cap) 0.4 mg PO QDAY [facility] Last Admin: 09/03/20 09:20 Dose: 0.4 mg Documented by: Trazodone HCl (Trazodone 50 Mg Tab) 50 mg PO QHS [facility] Last Admin: 09/02/20 21:06 Dose: 50 mg Documented by: Results - Results Labs/Vitals: Laboratory Last Values POC Glucose 178 mg/dL (70-105) H 09/02/20 19:33 Urine Color Straw (Yellow) 08/31/20 22:00 Urine Turbidity Clear (Clear) 08/31/20 22:00 Urine pH 6.0 (5.0-7.0) 08/31/20 22:00 Ur Specific [place] 1.024 (1.003-1.030) 08/31/20 22:00 Urine Protein <15 mg/dl mg/dL (Negative) 08/31/20 22:00 Urine Glucose (UA) >=500 mg/dL (Negative) 08/31/20 22:00 Urine Ketones Neg mg/dL (Negative) 08/31/20 22:00 Urine Blood Neg (Negative) 08/31/20 22:00 Urine Nitrite Neg (Negative) 08/31/20 22:00 Urine Bilirubin Neg (Negative) 08/31/20 22:00 Urine Urobilinogen < 2.0 mg/dL (<2.0) 08/31/20 22:00 Ur Leukocyte Esterase Neg (Negative) 08/31/20 22:00 Urine WBC (Auto) < 1.0 /HPF (0.0-6.0) 08/31/20 22:00 Urine RBC (Auto) 1.0 /HPF (0.0-6.0) 08/31/20 22:00 Last Vital Signs Temp 98.0 F 09/03/20 08:55 Pulse 72 09/03/20 08:55 Resp 16 09/03/20 08:55 BP 104/64 09/03/20 08:55 Pulse Ox 97 09/03/20 08:55
[2020-09-03] MEDS: traZODone 50 MG TAB PO SCH (21:24)
[2020-09-03] MEDS: PRAVASTATIN 80 MG TAB PO SCH (21:30)
[2020-09-04] MEDS: INSULIN REGULAR, HUMAN 100 UNITS/1 ML SUB-Q SCH ×4 (07:29→21:41)
[2020-09-04] MEDS: metFORMIN 500 MG TAB PO SCH ×2 (07:30→17:04)
[2020-09-04] MEDS: GLIMEPIRIDE 4 MG TAB PO SCH ×2 (07:30→17:04)
[2020-09-04] MEDS: MONTELUKAST 10 MG TAB PO SCH (09:26)
[2020-09-04] MEDS: SERTRALINE 50 MG TAB PO SCH (09:26)
[2020-09-04] MEDS: TAMSULOSIN 0.4 MG CAP PO SCH (09:26)
--- NOTE | 2020-09-04 10:57 | Progress Note ---
Subjective Date of service: 09/04/20 Principal diagnosis: MDD Subjective Comment: The patient was seen today, he says he is feeling better, but concerned about his neighbors and the amount of stress that it causes him. The patient denies SI/HI or hallucinations of any kind. Reason for continued inpatient treatment: The patient was recently suicidal and was concerned that the thoughts might reoccur once discharge. He is verbalizing feeling much better. The social work specialist will contact his family and will plan for a safe discharge once that is done. REVIEW OF SYSTEMS Constitutional: Negative for weight loss ENT: Negative for stridor Respiratory: Negative for cough or hemoptysis All other systems reviewed and are negative MENTAL STATUS EXAMINATION General Appearance and Behavior: Age appropriate, good hygiene, wearing appropriate clothes, good eye contact, cooperative polite with questioning. Cooperation: Participating/engaged Psychomotor Behavior: unremarkable and within normal limits Mood: Depressed Affect and affective range: congruent with mood Thought Process: Fluent/Logical, Thought Content: Within reality, Speech: Normal volume, Regular rate and rhythm, Intellectual Functioning: Average Suicidal Ideation: Yes Homicidal Ideation: Denies HI Impulse Control: Unimpaired Insight and Judgment: Normal insight and judgment, Memory: Normal, Attention: Normal, Orientation: Alert, oriented, Assessment (1) Major Depressive Disorder Current Visit: Yes Status: Acute Treatment Plan Patient admitted for inpatient psychiatric evaluation, medication adjustment and close monitoring The patient's behavior, mood, sleep and appetite will be closely monitored. Patient enrolled in individual and group therapeutic sessions and encouraged to attend. Patient provided with a safe and structured environment. Patient's physical health needs will be addressed by the Hospitalist. Hospitalist Consulted Labs including CBC, CMP, Lipid profile and Hemoglobin A1C levels ordered for baseline reference Social Assessment will be completed and the Superintendent Commissary will work with patient and family to ensure a suitable and safe disposition Medication adjustment will be made as clinically indicated Increased Trazodone 75mg po qhs yesterday No changes today Usual Wellness Mu-Ism/Preservation: - Start Trazodone 50 mg po QHS & 50 mg po QHS PRN between 10 PM & 2 AM for insomnia - Start Melatonin 5 mg po QHS to promote circadian rhythm - Start [place]-3 for brain health, reduce impulsivity, and as adjunctive treatment for mood disorder, continue upon discharge given overall benefits. - Start B1 prophylaxis with 200 mg po for 5 days The patient agreed on the treatment plan, understood the risk, benefit, alternative treatment, potential consequence of no treatment, and gave informed consent. Estimated days: 3 Post hospital care: primary care provider, psychiatric provider Case staffed with Dr. Montero Medications and Allergies Allergies Allergy/AdvReac Type Severity Reaction Status Date / Time No Known Allergies Allergy Unverified 11/12/14 16:38 Home Medications Medication Instructions Recorded Confirmed Last Taken Type Glimepiride 4 mg PO BID 11/12/14 08/31/20 11/12/14 History Montelukast Sodium [Singulair] 10 mg PO DAILY 11/12/14 08/31/20 11/12/14 History Simvastatin (NF) [Zocor TAB] 40 mg PO QHS 11/12/14 08/31/20 11/12/14 History Tamsulosin [Flomax] 0.4 mg PO QDAY #5 cap 11/12/14 08/31/20 Unknown Rx metFORMIN [Glucophage] 500 mg PO BID 08/31/20 08/31/20 08/31/20 10:00 History Active Meds: Active Medications Glimepiride (Glimepiride 4 Mg Tab) 4 mg PO BIDDIAB [facility] Last Admin: 09/04/20 07:30 Dose: 4 mg Documented by: Insulin Human Regular (Insulin Regular, Human 100 Units/1 Ml) 0 units SUB-Q [facility]; Protocol Last Admin: 09/04/20 07:29 Dose: 2 units Documented by: Melatonin (Melatonin 5 Mg Tab) 5 mg PO QHS PRN PRN Reason: Sleep Metformin HCl (Metformin 500 Mg Tab) 500 mg PO BIDDIAB [facility] Last Admin: 09/04/20 07:30 Dose: 500 mg Documented by: Montelukast Sodium (Montelukast 10 Mg Tab) 10 mg PO DAILY [facility] Last Admin: 09/04/20 09:26 Dose: 10 mg Documented by: Pravastatin Sodium (Pravastatin 80 Mg Tab) 80 mg PO QHS [facility] Last Admin: 09/03/20 21:30 Dose: 80 mg Documented by: Sertraline HCl (Sertraline 50 Mg Tab) 50 mg PO QDAY [facility] Last Admin: 09/04/20 09:26 Dose: 50 mg Documented by: Tamsulosin HCl (Tamsulosin 0.4 Mg Cap) 0.4 mg PO QDAY [facility] Last Admin: 09/04/20 09:26 Dose: 0.4 mg Documented by: Trazodone HCl (Trazodone 50 Mg Tab) 75 mg PO QHS [facility] Last Admin: 09/03/20 21:24 Dose: 75 mg Documented by: Results - Results Labs/Vitals: Laboratory Last Values POC Glucose 161 mg/dL (70-105) H 09/04/20 07:20 Urine Color Straw (Yellow) 08/31/20 22:00 Urine Turbidity Clear (Clear) 08/31/20 22:00 Urine pH 6.0 (5.0-7.0) 08/31/20 22:00 Ur Specific [place] 1.024 (1.003-1.030) 08/31/20 22:00 Urine Protein <15 mg/dl mg/dL (Negative) 08/31/20 22:00 Urine Glucose (UA) >=500 mg/dL (Negative) 08/31/20 22:00 Urine Ketones Neg mg/dL (Negative) 08/31/20 22:00 Urine Blood Neg (Negative) 08/31/20 22:00 Urine Nitrite Neg (Negative) 08/31/20 22:00 Urine Bilirubin Neg (Negative) 08/31/20 22:00 Urine Urobilinogen < 2.0 mg/dL (<2.0) 08/31/20 22:00 Ur Leukocyte Esterase Neg (Negative) 08/31/20 22:00 Urine WBC (Auto) < 1.0 /HPF (0.0-6.0) 08/31/20 22:00 Urine RBC (Auto) 1.0 /HPF (0.0-6.0) 08/31/20 22:00 Last Vital Signs Temp 98.0 F 09/03/20 19:29 Pulse 67 09/03/20 19:29 Resp 16 09/03/20 19:29 BP 110/66 09/03/20 19:29 Pulse Ox 97 09/03/20 19:29
[2020-09-04 11:23] LABS: Basophils % (Auto) 0.4 % (0.0-1.8); Eosinophils # (Auto) 0.1 K/mm3 (0.0-0.4); Eosinophils % (Auto) 2.6 % (0.0-4.3); Hematocrit 41.9 % (35.5-45.6); Hemoglobin 13.8 gm/dl (11.8-15.2); Lymphocytes # (Auto) 1.5 K/mm3 (1.2-5.4); Lymphocytes % (Auto) 35.8 % (13.4-35.0); Mean Corpuscular HGB Conc 33 % (32-34); Mean Corpuscular Volume 88 fl (84-94); Monocytes # (Auto) 0.3 K/mm3 (0.0-0.8); Monocytes % (Auto) 7.6 % (0.0-7.3); Platelet Count 160 K/mm3 (140-440); Red Blood Count 4.78 M/mm3 (3.65-5.03); Red Cell Distribution Width 13.1 % (13.2-15.2)
--- NOTE | 2020-09-04 11:34 | Consultation ---
History of Present Illness - Reason for Consult medical management Requesting physician: YUE VINSON - History of Present Illness 54 YO Male with DM, Asthma, Nephrolithiasis admitted to [facility] psych unit for psychiatric stabilization. Consult placed by for medical management. Patient seen and evaluated in the recreation room. Patient denies fever, chills, chest pain, palpitation, productive cough, skin rash, recent ill contacts, or known exposure to COVID-19. No reported nursing events. Past History Past Medical History: diabetes, other (See HPI) Past Surgical History: Other (Lithotripsy) Social history: . denies: smoking, alcohol abuse, prescription drug abu se Family history: hypertension Medications and Allergies Allergies Allergy/AdvReac Type Severity Reaction Status Date / Time No Known Allergies Allergy Unverified 11/12/14 16:38 Home Medications Medication Instructions Recorded Confirmed Last Taken Type Glimepiride 4 mg PO BID 11/12/14 08/31/20 11/12/14 History Montelukast Sodium [Singulair] 10 mg PO DAILY 11/12/14 08/31/20 11/12/14 History Simvastatin (NF) [Zocor TAB] 40 mg PO QHS 11/12/14 08/31/20 11/12/14 History Tamsulosin [Flomax] 0.4 mg PO QDAY #5 cap 11/12/14 08/31/20 Unknown Rx metFORMIN [Glucophage] 500 mg PO BID 08/31/20 08/31/20 08/31/20 10:00 History Melatonin [Melatonin 5MG TAB] 5 mg PO QHS PRN #30 tablet 09/05/20 Unknown Rx Sertraline [Zoloft] 50 mg PO QDAY #30 tablet 09/05/20 Unknown Rx traZODone [Desyrel] 75 mg PO QHS #30 tablet 09/05/20 Unknown Rx Active Meds: Active Medications Glimepiride (Glimepiride 4 Mg Tab) 4 mg PO BIDDIAB [facility] Last Admin: 09/04/20 07:30 Dose: 4 mg Documented by: Insulin Human Regular (Insulin Regular, Human 100 Units/1 Ml) 0 units SUB-Q [facility]; Protocol Last Admin: 09/04/20 07:29 Dose: 2 units Documented by: Melatonin (Melatonin 5 Mg Tab) 5 mg PO QHS PRN PRN Reason: Sleep Metformin HCl (Metformin 500 Mg Tab) 500 mg PO BIDDIAB [facility] Last Admin: 09/04/20 07:30 Dose: 500 mg Documented by: Montelukast Sodium (Montelukast 10 Mg Tab) 10 mg PO DAILY [facility] Last Admin: 09/04/20 09:26 Dose: 10 mg Documented by: Pravastatin Sodium (Pravastatin 80 Mg Tab) 80 mg PO QHS [facility] Last Admin: 09/03/20 21:30 Dose: 80 mg Documented by: Sertraline HCl (Sertraline 50 Mg Tab) 50 mg PO QDAY [facility] Last Admin: 09/04/20 09:26 Dose: 50 mg Documented by: Tamsulosin HCl (Tamsulosin 0.4 Mg Cap) 0.4 mg PO QDAY [facility] Last Admin: 09/04/20 09:26 Dose: 0.4 mg Documented by: Trazodone HCl (Trazodone 50 Mg Tab) 75 mg PO QHS [facility] Last Admin: 09/03/20 21:24 Dose: 75 mg Documented by: Review of Systems Constitutional: no weight loss, no weight gain, no chills, no sweats Ears, nose, mouth and throat: no ear pain, no tinnitis, no decreased hearing, no nose pain, no nasal discharge, no sinus pressure Cardiovascular: no chest pain, no orthopnea, no palpitations, no rapid/irregular heart beat, no edema, no syncope Respiratory: no cough, no cough with sputum, no hemoptysis, no shortness of breath Gastrointestinal: no abdominal pain, no vomiting, no constipation, no change in bowel habits, no hematemesis Genitourinary Male: no hematuria, no flank pain, no discharge Rectal: no pain, no incontinence, no bleeding Musculoskeletal: no neck pain, no shooting arm pain, no arm numbness/tingling Integumentary: no rash, no redness, no sores, no wounds Neurological: no transient paralysis, no weakness, no numbness, no syncope, no ataxia Psychiatric: suicidal ideation, depression, hopelessness, no change in sleep habits, no sleep disturbances, no insomnia, no hypersomnia Endocrine: no cold intolerance, no polyphagia, no excessive thirst, no nocturia, no excessive sweating, no flushing Hematologic/Lymphatic: no easy bruising, no easy bleeding, no lymphadenopathy Allergic/Immunologic: no persistent infections, no angioedema Exam - Constitutional Vitals: Temp Pulse Resp BP Pulse Ox 98.0 F 67 16 110/66 97 09/03/20 19:29 09/03/20 19:29 09/03/20 19:29 09/03/20 19:29 09/03/20 19:29 General appearance: Present: no acute distress, well-nourished - EENT Eyes: Present: PERRL ENT: hearing intact, clear oral mucosa - Neck Neck: Present: supple, normal ROM - Respiratory Respiratory effort: normal Respiratory: bilateral: CTA - Cardiovascular Heart Sounds: Present: S1 & S2. Absent: rub, click - Extremities Extremities: pulses symmetrical, No edema Peripheral Pulses: within normal limits - Abdominal General gastrointestinal: Present: soft, non-tender, non-distended, normal bowel sounds Male genitourinary: Present: normal - Integumentary Integumentary: Present: clear, warm, dry - Musculoskeletal Musculoskeletal: gait normal, strength equal bilaterally - Psychiatric Psychiatric: appropriate mood/affect, intact judgment & insight - Neurologic Neurologic: CNII-XII intact, moves all extremities Results - Labs CBC & Chem 7: 09/04/20 09:42 09/04/20 09:42 Labs: Abnormal lab results 09/03/20 09/03/20 09/04/20 Range/Units 16:15 19:32 07:20 WBC (4.5-11.0) K/mm3 RDW (13.2-15.2) % Lymph % (Auto) (13.4-35.0) % [place] % (Auto) (0.0-7.3) % POC Glucose 242 H 240 H 161 H (70-105) mg/dL 09/04/20 Range/Units 09:42 WBC 4.1 L (4.5-11.0) K/mm3 RDW 13.1 L (13.2-15.2) % Lymph % (Auto) 35.8 H (13.4-35.0) % [place] % (Auto) 7.6 H (0.0-7.3) % POC Glucose (70-105) mg/dL Assessment and Plan - Patient Problems (1) Diabetes mellitus Status: Acute Plan to address problem: Consistent carbohydrate diet, Accu-Chek, resume oral antihyperglycemic therapy, (2) Asthma Status: Acute Plan to address problem: Continue medical management. (3) Suicidal ideation Status: Acute Plan to address problem: Continue medical management.
[2020-09-04 12:20] LABS: Alanine Aminotransferase 9 units/L (7-56); Albumin 3.4 g/dL (3.9-5); BUN/Creatinine Ratio 18; Blood Urea Nitrogen 14 mg/dL (9-20); Calcium 8.8 mg/dL (8.4-10.2); Chol/HDL Ratio 4.37 %; HDL Cholesterol 45 mg/dL (40-59); Hemolysis Index 5; LDL Cholesterol,Direct 149 mg/dL (50-130)
[2020-09-04] MEDS: traZODone 50 MG TAB PO SCH (21:26)
[2020-09-04] MEDS: PRAVASTATIN 80 MG TAB PO SCH (21:26)
[2020-09-05 08:46] VITALS: BP 109/71
--- NOTE | 2020-09-05 09:21 | Discharge Summary ---
Providers - Providers Date of Admission: 08/31/20 17:11 Date of discharge: 09/05/20 Attending physician: YUE VINSON MD 08/31/20 06:45 Consult to Physician [CONS] Routine Comment: Consulting Provider: REAGAN VILLA Physician Instructions: Consultation & Manage Existing conditon Reason For Exam: New admission H&P Primary care physician: [employer] Hospitalization Reason for admission: SI Admitting Diagnosis: F33.9 - MAJOR DEPRESSIVE DISORDER, RECURRENT, UNSPECIFIED Condition: Stable Hospital course: The patient was provided inpatient psychiatric treatment with safe and supportive care, medication adjustment, adverse effect monitoring, medical evaluations, medical treatments, assessment and psycho-education. The patient's mood, cognition, behavior, moral support are improved and stabilized. St the time of discharge, the patient had no endangering behavior and no debilitating adverse effects. The patient agreed on potential consequences of no treatment and gave informed consent. Disposition: DC- TO HOME OR SELFCARE Time spent for discharge: 38 Allergies/Adverse Reactions: Allergies No Known Allergies Allergy (Unverified 11/12/14 16:38) Vital Signs: Last Vital Signs Temp 97.8 F 09/05/20 08:31 Pulse 71 09/05/20 08:31 Resp 16 09/05/20 08:31 BP 109/71 09/05/20 08:31 Pulse Ox 97 09/05/20 08:31 Last Lab: Laboratory Last Values WBC 4.1 K/mm3 (4.5-11.0) L 09/04/20 09:42 RBC 4.78 M/mm3 (3.65-5.03) 09/04/20 09:42 Hgb 13.8 gm/dl (11.8-15.2) 09/04/20 09:42 Hct 41.9 % (35.5-45.6) 09/04/20 09:42 MCV 88 fl (84-94) 09/04/20 09:42 MCH 29 pg (28-32) 09/04/20 09:42 MCHC 33 % (32-34) 09/04/20 09:42 RDW 13.1 % (13.2-15.2) L 09/04/20 09:42 Plt Count 160 K/mm3 (140-440) 09/04/20 09:42 Lymph % (Auto) 35.8 % (13.4-35.0) H 09/04/20 09:42 [place] % (Auto) 7.6 % (0.0-7.3) H 09/04/20 09:42 Eos % (Auto) 2.6 % (0.0-4.3) 09/04/20 09:42 Baso % (Auto) 0.4 % (0.0-1.8) 09/04/20 09:42 Lymph # (Auto) 1.5 K/mm3 (1.2-5.4) 09/04/20 09:42 [place] # (Auto) 0.3 K/mm3 (0.0-0.8) 09/04/20 09:42 Eos # (Auto) 0.1 K/mm3 (0.0-0.4) 09/04/20 09:42 Baso # (Auto) 0.0 K/mm3 (0.0-0.1) 09/04/20 09:42 Seg Neutrophils % 53.6 % (40.0-70.0) 09/04/20 09:42 Seg Neutrophils # 2.2 K/mm3 (1.8-7.7) 09/04/20 09:42 Sodium 139 mmol/L (137-145) 09/04/20 09:42 Potassium 4.2 mmol/L (3.6-5.0) 09/04/20 09:42 Chloride 103.9 mmol/L (98-107) 09/04/20 09:42 Carbon Dioxide 27 mmol/L (22-30) 09/04/20 09:42 Anion Gap 12 mmol/L 09/04/20 09:42 BUN 14 mg/dL (9-20) 09/04/20 09:42 Creatinine 0.8 mg/dL (0.8-1.3) 09/04/20 09:42 Estimated GFR > 60 ml/min 09/04/20 09:42 BUN/Creatinine Ratio 18 % 09/04/20 09:42 Glucose 156 mg/dL (75-100) H 09/04/20 09:42 POC Glucose 121 mg/dL (70-105) H 09/05/20 07:42 Hemoglobin A1c 12.4 % (4-6) H 09/04/20 09:42 Calcium 8.8 mg/dL (8.4-10.2) 09/04/20 09:42 Total Bilirubin 0.40 mg/dL (0.1-1.2) 09/04/20 09:42 AST 12 units/L (5-40) 09/04/20 09:42 ALT 9 units/L (7-56) 09/04/20 09:42 Alkaline Phosphatase 76 units/L (35-129) 09/04/20 09:42 Total Protein 6.2 g/dL (6.3-8.2) L 09/04/20 09:42 Albumin 3.4 g/dL (3.9-5) L 09/04/20 09:42 Albumin/Globulin Ratio 1.2 % 09/04/20 09:42 Triglycerides 85 mg/dL (2-149) 09/04/20 09:42 Cholesterol 197 mg/dL (50-199) 09/04/20 09:42 LDL Cholesterol Direct 149 mg/dL (50-130) H 09/04/20 09:42 HDL Cholesterol 45 mg/dL (40-59) 09/04/20 09:42 Cholesterol/HDL Ratio 4.37 % 09/04/20 09:42 TSH 0.620 mlU/mL (0.270-4.200) 09/04/20 09:42 Urine Color Straw (Yellow) 08/31/20 22:00 Urine Turbidity Clear (Clear) 08/31/20 22:00 Urine pH 6.0 (5.0-7.0) 08/31/20 22:00 Ur Specific [place] 1.024 (1.003-1.030) 08/31/20 22:00 Urine Protein <15 mg/dl mg/dL (Negative) 08/31/20 22:00 Urine Glucose (UA) >=500 mg/dL (Negative) 08/31/20 22:00 Urine Ketones Neg mg/dL (Negative) 08/31/20 22:00 Urine Blood Neg (Negative) 08/31/20 22:00 Urine Nitrite Neg (Negative) 08/31/20 22:00 Urine Bilirubin Neg (Negative) 08/31/20 22:00 Urine Urobilinogen < 2.0 mg/dL (<2.0) 08/31/20 22:00 Ur Leukocyte Esterase Neg (Negative) 08/31/20 22:00 Urine WBC (Auto) < 1.0 /HPF (0.0-6.0) 08/31/20 22:00 Urine RBC (Auto) 1.0 /HPF (0.0-6.0) 08/31/20 22:00 Core Measure Documentation - Palliative Care Palliative Care/ Comfort Measures: Not Applicable - Core Measures Any of the following diagnoses?: stroke, none (stroke hit by accident) - Stroke Discharge Requirements Anticoag for atrial fib/atrial flutter: Not Applicable Antithrombotic for ischemic stroke: No Reason for no antithrombotic on DC: Not Indicated Exam - Constitutional Vitals: Temp Pulse Resp BP Pulse Ox 97.8 F 71 16 109/71 97 09/05/20 08:31 09/05/20 08:31 09/05/20 08:31 09/05/20 08:31 09/05/20 08:31 General appearance: Present: no acute distress - EENT Eyes: Present: PERRL, EOM intact ENT: hearing intact, clear oral mucosa - Neck Neck: Present: supple, normal ROM - Respiratory Respiratory effort: normal Plan Activity: advance as tolerated Weight Bearing Status: Weight Bear as Tolerated Care Plan Goals: Maintain good and stable mental health Plan of Treatment: The patient should be compliant with medications, not to use drugs, and not to drink alcohol. The patient understands that if suicidal ideas, homicidal ideas or any endangering feeling arise, the patient should seek assistance including, but not limited to crisis hotline, and emergency room. Assessment: MDD Follow up with: PRIMARY CARE, [Primary Care Provider] - 7 Days Prescriptions: traZODone [Desyrel] 75 mg PO QHS #30 tablet Melatonin [Melatonin 5MG TAB] 5 mg PO QHS PRN #30 tablet PRN Reason: Sleep Sertraline [Zoloft] 50 mg PO QDAY #30 tablet
[2020-09-05] MEDS: INSULIN REGULAR, HUMAN 100 UNITS/1 ML SUB-Q SCH (10:44)
[2020-09-05] MEDS: GLIMEPIRIDE 4 MG TAB PO SCH (10:44)
[2020-09-05] MEDS: SERTRALINE 50 MG TAB PO SCH (10:45)
[2020-09-05] MEDS: metFORMIN 500 MG TAB PO SCH (10:45)
[2020-09-05] MEDS: MONTELUKAST 10 MG TAB PO SCH (10:45)
[2020-09-05] MEDS: TAMSULOSIN 0.4 MG CAP PO SCH (10:45)
== END 2020-09-05 15:20 | disposition home or self-care (01) | DRG 885 ==
LOC: 3A 02:12 → UNDOADMIN 02:12 → 5A 17:11
PROVIDERS: ADMIT Psychiatry & Neurology Psychiatry; ATTEND Psychiatry & Neurology Psychiatry
DX: F33.9 Major depressive disorder, recurrent, unspecified (principal); F41.9 Anxiety disorder, unspecified; E11.9 Type 2 diabetes mellitus without complications; J45.909 Unspecified asthma, uncomplicated
CPT/HCPCS: 36415; 80048; 80053; 80061; 80307; 80320; 81001; 82962; 83036; 84443; 85025; 96361; 96372; 96374; G0378; A9270-GY; G0480; J1815; J7030; U0003